=== PATIENT | male | born 1965 | race American Indian/Alaskan Native ===

== ENCOUNTER 2018-12-01 10:49 | Day surgery (SDC) | payer OTHER ==
[2018-12-01] MEDS ORDERED: NACL 0.9% 1000 ML 1,000 ML IV SCH (12:00)
--- NOTE | 2018-12-01 12:51 | Anesthesia Consultation ---
Anesthesia Consult and Med Hx Date of service: 12/01/18 - Airway Anesthetic Teeth Evaluation: Dentures ROM Head & Neck: Adequate Mental/Hyoid Distance: Adequate Mallampati Class: Class II Intubation Access Assessment: Good - Pulmonary Exam CTA: Yes - Cardiac Exam Cardiac Exam: RRR - Pre-Operative Health Status ASA Pre-Surgery Classification: ASA2 Proposed Anesthetic Plan: MAC - Pulmonary Hx Smoking: No - Cardiovascular System Hx Hypertension: Yes
--- NOTE | 2018-12-01 12:51 | Anesthesia Day of Surgery ---
Anesthesia Day of Surgery - Day of Surgery Patient Examined: Yes Patient H&P Reviewed: Yes Patient is NPO: Yes
[2018-12-01] MEDS ORDERED: DIPRIVAN 10 MG/ML IV ONE ×2 (13:01)
--- NOTE | 2018-12-01 13:32 | Procedure Note ---
Date of procedure: 12/01/18 Pre-op diagnosis: Colon Polyp Screening Post-op diagnosis: other (No Colon Polyps noted/ Minor,Internal Hemorrhoid) Procedure: Colonoscopy Anesthesia: MAC Surgeon: RICH FR[place] Estimated blood loss: none Pathology: none Condition: stable Disposition: same day (Resume home medication and follow up in 1 to 2 weeks ([phone]).)
[2018-12-01 14:19] VITALS: BP 131/77
--- NOTE | 2018-12-01 15:53 | Operative Report ---
PROCEDURE: Colonoscopy. INDICATIONS: The patient is a 53-year-old -[place] gentleman with no significant past medical history, who had a colonoscopy done because of his age as part of colon polyp screening. DESCRIPTION OF PROCEDURE: Procedure was done after getting informed consent with MAC anesthesia. Initial rectal exam was unremarkable. Instrument was passed through the rectum onto the cecum, which was identified by the ileocecal valve and the appendiceal orifice. Visualization was fair to good. Cecum, ascending colon, transverse colon, descending colon, and sigmoid showed normal mucosa. There was no evidence of any polyps, colitis or diverticular disease. The rectum showed mild internal hemorrhoids on the retroverted view. ASSESSMENT: Colon polyp screening, no colon polyps noted. Minor internal hemorrhoid. Plan is to resume previous medication and have the patient follow up in the office in 1-2 weeks' time. There was no bleeding or complications associated with the procedure. Procedure was done in the presence of YAHAIRA, Ethel Whitman. JOB# [id number] KAREN/RICKIE
== END 2018-12-01 10:50 | disposition home or self-care (01) ==
LOC: GIO 10:49
DX: Z12.11 Encounter for screening for malignant neoplasm of colon (principal); K64.8 Other hemorrhoids; I10 Essential (primary) hypertension; Z98.890 Other specified postprocedural states; Z79.899 Other long term (current) drug therapy
CPT/HCPCS: 45378; J2704; J7030